=== PATIENT | female | born 1980 | race Two or more races ===

== ENCOUNTER → 2016-11-07 | Outpatient (CLI) | payer SELFPAY ==
--- NOTE | 2016-11-07 11:52 | RADIOLOGY REPORT (SQ) ---
EXAM DESCRIPTION: CHEST PA/LATERAL COMPLETED DATE/TIME: 11/07/2016 9:46 am REASON FOR STUDY: CHEST PAIN, UNSPECIFIED COMPARISON: None. NUMBER OF VIEWS: Two view. TECHNIQUE: Frontal and lateral radiographic views of the chest acquired. LIMITATIONS: None. FINDINGS: LUNGS AND PLEURA: No opacities, masses or pneumothorax. No pleural effusion. MEDIASTINUM AND HILAR STRUCTURES: No masses or contour abnormalities. HEART AND VASCULATURE: Heart normal size. No evidence for failure. BONY STRUCTURES: No acute findings. HARDWARE: None. OTHER: No other significant finding. IMPRESSION: NO SIGNIFICANT RADIOGRAPHIC FINDING IN THE CHEST. TECHNICAL DOCUMENTATION: JOB ID: [id number] [employer]- All Rights Reserved
--- NOTE | 2016-11-07 12:18 | EKG REPORT ---
SEVERITY:- BORDERLINE ECG - SINUS RHYTHM INFERIOR Q WAVES, PROBABLY NORMAL VARIATION : Confirmed by: Estella Pierre 07-Nov-2016 12:17:33
== END ==
LOC: OD 09:28
PROVIDERS: ATTEND Physician Assistant
DX: R07.9 Chest pain, unspecified (principal)
CPT/HCPCS: 71020; 93005; 93010

== ENCOUNTER 2017-05-23 13:33 | Emergency (ER) | payer SELFPAY ==
--- NOTE | 2017-05-23 15:09 | ER Document Report ---
ED GI/ - General Mode of Arrival: Ambulatory Information source: Patient TRAVEL OUTSIDE OF THE [place] IN LAST 30 DAYS: No <NICANOR BANKS - Last Filed: 05/23/17 15:52> <KAMERONRUDDY Pieter - Last Filed: 05/24/17 23:11> - General Chief Complaint: Abdominal Pain Stated Complaint: ABDOMINAL PAIN Time Seen by Provider: 05/23/17 14:58 Notes: Patient is a 37 year old female presenting to the emergency department complaining of lower abdominal pain and vomiting onset 3 days ago. Patient states that she has recently been diagnosed with a UTI and has been taking her medications but feels as if her symptoms have returned. Patient describes her pain as a sharp pain in her pelvis exacerbated with urination. Patient states that she has 6 episodes of vomiting this morning. Patient also complains of headaches. Patient denies fevers, vaginal discharge, or diarrhea. Patient states she took AZO to help her medications and states it minimally relieved his symptoms. Patient currently takes Mobic for her rheumatoid arthritis. (NICANOR BANKS) - Related Data Allergies/Adverse Reactions: No Known Allergies Allergy (Verified 05/23/17 13:35) Past Medical History - General Information source: Patient - Social History Smoking Status: Unknown if Ever Smoked Chew tobacco use (# tins/day): No Frequency of alcohol use: None Drug Abuse: None Family History: CAD, DM, Hyperlipidemia, Hypertension, Thyroid Disfunction Patient has suicidal ideation: No Patient has homicidal ideation: No - Past Medical History Cardiac Medical History: Reports: Hx Pulmonary Embolism Endocrine Medical History: Reports: Hx Hypothyroidism Musculoskeltal Medical History: Reports Hx Arthritis - RA Past Surgical History: Reports: Hx Section, Hx Orthopedic Surgery - R hip, Hx Tubal Ligation, Hx Vascular Surgery - 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 - Immunizations Immunizations up to date: Yes Hx Diphtheria, Pertussis, Tetanus Vaccination: Yes <NICANOR BANKS - Last Filed: 05/23/17 15:52> Review of Systems - Review of Systems Constitutional: No symptoms reported EENT: No symptoms reported Cardiovascular: No symptoms reported Respiratory: No symptoms reported Gastrointestinal: See HPI, Vomiting Genitourinary: See HPI, Pain Female Genitourinary: No symptoms reported Musculoskeletal: No symptoms reported Skin: No symptoms reported Hematologic/Lymphatic: No symptoms reported Neurological/Psychological: See HPI, Headaches -: Yes All other systems reviewed and negative <NICANOR BANKS - Last Filed: 05/23/17 15:52> Physical Exam <NICANOR BANKS - Last Filed: 05/23/17 15:52> <RUDDY MELO - Last Filed: 05/24/17 23:11> - Vital signs Vitals: Temp Pulse Resp BP Pulse Ox 98.9 F 93 18 140/82 H 100 05/23/17 13:46 05/23/17 13:46 05/23/17 13:46 05/23/17 13:46 05/23/17 13:46 - Notes Notes: GENERAL: Alert, interacts well. No acute distress. HEAD: Normocephalic, atraumatic. EYES: Pupils equal, round, and reactive to light. Extraocular movements intact. ENT: Oral mucosa moist, tongue midline. NECK: Full range of motion. Supple. Trachea midline. LUNGS: Clear to auscultation bilaterally, no wheezes, rales, or rhonchi. No respiratory distress. HEART: Regular rate and rhythm. No murmurs, gallops, or rubs. ABDOMEN: Soft, non-tender. Non-distended. Bowel sounds present in all 4 quadrants. EXTREMITIES: Moves all 4 extremities spontaneously. NEUROLOGICAL: Alert and oriented x3. Normal speech. PSYCH: Normal affect, normal mood. SKIN: Warm, dry, normal turgor. No rashes or lesions noted. (NICANOR BANKS) Course <NICANOR BANKS - Last Filed: 05/23/17 15:52> - Laboratory Result Diagrams: 05/23/17 16:06 <RUDDY MELO - Last Filed: 05/24/17 23:11> - Re-evaluation Re-evalutation: 05/23/17 17:01 Labs show leukoesterase and white blood cells with clinical signs and symptoms of urinary tract infection. Patient will be provided Keflex with return precautions provided. (RUDDY MELO) - Vital Signs Vital signs: Temp Pulse Resp BP Pulse Ox 98.0 F 88 18 133/80 H 100 05/23/17 17:18 05/23/17 17:18 05/23/17 17:18 05/23/17 17:18 05/23/17 17:18 - Laboratory Laboratory results interpreted by me: 05/23/17 05/23/17 16:06 16:06 Creatinine 0.51 L Ur Leukocyte Esterase SMALL H Discharge <NICANOR BANKS - Last Filed: 05/23/17 15:52> <RUDDY MELO - Last Filed: 05/24/17 23:11> - Discharge Clinical Impression: Urinary tract infection Qualifiers: Urinary tract infection type: site unspecified Hematuria presence: without hematuria Qualified Code(s): N39.0 - Urinary tract infection, site not specified Disposition: HOME, SELF-CARE Instructions: Urinary Tract Infection ([facility]) Additional Instructions: If you begin to develop any fevers or worsening symptoms return to emergency department for further evaluation Prescriptions: Cephalexin Monohydrate [Keflex 500 mg Capsule] 500 mg PO Q6H 5 Days capsule Referrals: JOSE MANUEL BROWN PA-C [Primary Care Provider] - Follow up as needed Scribe Attestation: 05/24/17 23:11 I personally performed the services described documentation, reviewed and edited the documentation which was dictated to describe my presence, and it accurately records my words and actions. (RUDDY MELO) Scribe Documentation - Scribe Written by Scribe:: Maximilian Ramsey, 05/23/2017 15:35 acting as scribe for :: Kameron <NICANOR BANKS - Last Filed: 05/23/17 15:52>
[2017-05-23] MEDS ORDERED: PROCHLORPERAZINE EDISYLATE INJ 10 MG/2 ML VIAL IM ONE (16:15)
[2017-05-23 16:29] LABS: APPEARANCE,URINE SLIGHTLY-CLOUDY; BILIRUBIN,URINE NEGATIVE (NEGATIVE); COLOR,URINE YELLOW; GLUCOSE, URINE NEGATIVE (NEGATIVE); KETONES,URINE NEGATIVE (NEGATIVE); LEUKOCYTE ESTERASE,URINE SMALL (NEGATIVE); NITRITE,URINE NEGATIVE (NEGATIVE); PROTEIN,URINE NEGATIVE (NEGATIVE); URINE SPECIFIC GRAVITY 1.013; UROBILINOGEN,URINE NEGATIVE mg/dL (<2.0)
[2017-05-23 16:47] LABS: ANION GAP 8 (5-19); BLOOD UREA NITROGEN 10 mg/dL (7-20); CALCIUM 9.8 mg/dL (8.4-10.2); CARBON DIOXIDE 28 mmol/L (22-30); CHLORIDE 103 mmol/L (98-107); GLUCOSE 86 mg/dL (75-110); POTASSIUM 3.7 mmol/L (3.6-5.0); SODIUM 139.3 mmol/L (137-145)
[2017-05-23 17:23] VITALS: BP 133/80
== END 2017-05-23 17:20 | disposition home or self-care (01) ==
LOC: ER 13:33
DX: N39.0 Urinary tract infection, site not specified (principal); R10.30 Lower abdominal pain, unspecified; R11.10 Vomiting, unspecified; R51 Headache; E03.9 Hypothyroidism, unspecified; Z86.711 Personal history of pulmonary embolism; Z98.51 Tubal ligation status
CPT/HCPCS: 99283; 96372; 36415; 81025; 80048; 81001; J0780

== ENCOUNTER → 2018-06-18 | Outpatient (CLI) | payer MEDICAID ==
--- NOTE | 2018-06-19 08:37 | RADIOLOGY REPORT (SQ) ---
EXAM DESCRIPTION: CHEST 2 VIEWS COMPLETED DATE/TIME: 06/18/2018 6:35 pm REASON FOR STUDY: R05 COUGH COMPARISON: 11/07/2016 EXAM PARAMETERS: NUMBER OF VIEWS: two views TECHNIQUE: Digital Frontal and Lateral radiographic views of the chest acquired. RADIATION DOSE: NA LIMITATIONS: none FINDINGS: LUNGS AND PLEURA: No opacities, masses or pneumothorax. No pleural effusion. MEDIASTINUM AND HILAR STRUCTURES: No masses or contour abnormalities. HEART AND VASCULAR STRUCTURES: Heart normal size. No evidence for failure. BONES: No acute findings. HARDWARE: None in the chest. OTHER: IVC filter to the right of the L1-L2 vertebra, unchanged finding. IMPRESSION: 1. No significant interval changes since the previous examination dated 11/07/2016. No acute findings. TECHNICAL DOCUMENTATION: JOB ID: [id number] [employer]- All Rights Reserved Reading location - IP/workstation name: [email or web address]
== END ==
LOC: RAD 18:11
PROVIDERS: ATTEND Nurse Practitioner Acute Care
DX: R05 Cough (principal)
CPT/HCPCS: 71046

== ENCOUNTER 2018-08-01 06:31 | Emergency (ER) | payer SELFPAY ==
[2018-08-01] MEDS ORDERED: ACETAMINOPHEN 325 MG TABLET PO ONE ×2 (07:23→16:46)
[2018-08-01] MEDS ORDERED: NORMAL SALINE 1000 ML 1,000 ML IV PRN (08:00)
[2018-08-01 08:02] LABS: APPEARANCE,URINE SLIGHTLY-CLOUDY; BILIRUBIN,URINE NEGATIVE (NEGATIVE); GLUCOSE, URINE NEGATIVE (NEGATIVE); KETONES,URINE NEGATIVE (NEGATIVE); LEUKOCYTE ESTERASE,URINE MODERATE (NEGATIVE); NITRITE,URINE NEGATIVE (NEGATIVE); PROTEIN,URINE 100 mg/dL (NEGATIVE); URINE SPECIFIC GRAVITY 1.025
[2018-08-01 08:03] LABS: COLOR,URINE DARK YELLOW
[2018-08-01] MEDS ORDERED: ONDANSETRON HCL INJ/PF 4 MG/2 ML SDV IV ONE (08:06)
[2018-08-01 08:39] LABS: HEMATOCRIT 35.6 % (36.0-47.0); HEMOGLOBIN 11.8 g/dL (12.0-15.5); MEAN CORPUSCULAR HGB CONC 33.2 g/dL (32.0-36.0); MEAN CORPUSCULAR VOLUME 78 fl (80-97); PLATELET COUNT 276 10^3/uL (150-450); RED BLOOD COUNT 4.55 10^6/uL (3.72-5.28); RED CELL DISTRIBUTION WIDTH 15.5 % (11.5-14.0)
--- NOTE | 2018-08-01 08:53 | ER Document Report ---
ED Medical Screen (RME) - General Chief Complaint: Fever Stated Complaint: VOMITING Time Seen by Provider: 08/01/18 08:42 Primary Care Provider: JOSE MANUEL BROWN PA-C [Primary Care Provider] - Follow up as needed Mode of Arrival: Ambulatory Information source: Patient Notes: Patient presents to the emergency department with complaints of abdominal pain, left upper quad, for the past week. Denies trauma. She reports fever of 102 started yesterday with vomiting and diarrhea. Patient has history of PE with a filter, asthma. Patient also reports that it feels like a ton of bricks sitting on her chest. Patient also reports her whole body hurts. No wheezes noted. Respiratory rate even unlabored. I have greeted and performed a rapid initial assessment of this patient. A comprehensive ED assessment and evaluation of the patient, analysis of test results and completion of the medical decision making process will be conducted by additional ED providers. TRAVEL OUTSIDE OF THE [place] IN LAST 30 DAYS: No - Related Data Allergies/Adverse Reactions: No Known Allergies Allergy (Verified 05/23/17 13:35) Past Medical History - Social History Chew tobacco use (# tins/day): No Frequency of alcohol use: None Drug Abuse: None - Past Medical History Cardiac Medical History: Reports: Hx Pulmonary Embolism Endocrine Medical History: Reports: Hx Hypothyroidism Renal/ Medical History: Denies: Hx Peritoneal Dialysis Musculoskeltal Medical History: Reports Hx Arthritis - RA Past Surgical History: Reports: Hx Section, Hx Orthopedic Surgery - R hip, Hx Tubal Ligation, Hx Vascular Surgery - 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 - Immunizations Immunizations up to date: Yes Hx Diphtheria, Pertussis, Tetanus Vaccination: Yes Physical Exam - Vital signs Vitals: Temp Pulse Resp BP Pulse Ox 100.4 F 112 H 20 128/75 H 97 08/01/18 06:37 08/01/18 06:37 08/01/18 06:37 08/01/18 06:37 08/01/18 06:37 Course - Vital Signs Vital signs: Temp Pulse Resp BP Pulse Ox 100.4 F 112 H 20 128/75 H 97 08/01/18 06:37 08/01/18 06:37 08/01/18 06:37 08/01/18 06:37 08/01/18 06:37 - Laboratory Result Diagrams: 08/01/18 08:08 08/01/18 08:08 Laboratory results interpreted by me: 08/01/18 08/01/18 07:29 08:08 WBC 15.0 H Hgb 11.8 L Hct 35.6 L MCV 78 L MCH 26.0 L RDW 15.5 H Urine Protein 100 H Urine Blood SMALL H Urine Urobilinogen 4.0 H Ur Leukocyte Esterase MODERATE H Doctor's Discharge - Discharge Referrals: JOSE MANUEL BORWN PA-C [Primary Care Provider] - Follow up as needed
[2018-08-01 09:02] LABS: A TYPE INFLUENZA AG NEGATIVE (NEGATIVE); B INFLUENZA AG NEGATIVE (NEGATIVE)
[2018-08-01 09:08] LABS: ABSOLUTE LYMPHOCYTES# (MANUAL) 0.8 10^3/uL (0.5-4.7); ABSOLUTE MONOCYTES # (MANUAL) 0.2 10^3/uL (0.1-1.4); BAND NEUTROPHILS % (MANUAL) 3 % (3-5); BASOPHILS % (MANUAL) 0 % (0-2); EOSINOPHILS % (MANUAL) 1 % (0-6); LYMPHOCYTES % (MANUAL) 5 % (13-45); MONOCYTES % (MANUAL) 1 % (3-13); SEGMENTED NEUTROPHILS % (MAN) 90 % (42-78); TOTAL CELLS COUNTED 100
[2018-08-01 09:13] LABS: ANISOCYTOSIS SLIGHT; OVALOCYTES SLIGHT; PLATELET COMMENT ADEQUATE; POLYCHROMASIA SLIGHT; TOXIC GRANULATION SLIGHT; TOXIC VACUOLATION PRESENT
[2018-08-01 09:18] LABS: INTERNATIONAL RATION (INR) 1.13; PARTIAL THROMBOPLASTIN TIME 38.6 SEC (23.5-35.8); PROTHROMBIN TIME 15.1 SEC (11.4-15.4)
[2018-08-01 10:03] LABS: CREATINE KINASE MB < 0.22 ng/mL (<4.55); TROPONIN I < 0.012 ng/mL
[2018-08-01 11:45] LABS: ALANINE AMINOTRANSFERASE 28 U/L (9-52); ALBUMIN 3.8 g/dL (3.5-5.0); ALKALINE PHOSPHATASE 75 U/L (38-126); ANION GAP 10 (5-19); ASPARTATE AMINO TRANSFERASE 21 U/L (14-36); BILIRUBIN,DIRECT 0.4 mg/dL (0.0-0.4); BILIRUBIN,TOTAL 0.4 mg/dL (0.2-1.3); BLOOD UREA NITROGEN 11 mg/dL (7-20); CALCIUM 8.8 mg/dL (8.4-10.2); CARBON DIOXIDE 24 mmol/L (22-30); CHLORIDE 106 mmol/L (98-107); CREATINE KINASE 59 U/L (30-135); GLUCOSE 97 mg/dL (75-110); POTASSIUM 3.3 mmol/L (3.6-5.0); SODIUM 139.6 mmol/L (137-145); TOTAL PROTEIN 7.4 g/dL (6.3-8.2)
[2018-08-01] MEDS ORDERED: NORMAL SALINE 1000 ML 1,000 ML IV ONE (11:55)
[2018-08-01] MEDS ORDERED: FENTANYL CITRATE INJ/PF 100 MCG/2 ML AMPUL IV ONE (11:58)
[2018-08-01] MEDS ORDERED: CEFTRIAXONE 1 GM/D5W RTU 1 GM/50 ML RTUPB IV ONE (12:17)
--- NOTE | 2018-08-01 12:18 | ER Document Report ---
ED General - General Chief Complaint: Fever Stated Complaint: VOMITING Time Seen by Provider: 08/01/18 08:42 Primary Care Provider: JOSE MANUEL BROWN PA-C [Primary Care Provider] - Follow up as needed Mode of Arrival: Ambulatory Notes: 38-year-old female with history of PE with IVC filter Zentz to the emergency department for chief complaint of fever, vomiting, diarrhea, body aches since yesterday. Her T-max yesterday was 102.7. She took ibuprofen 1 hour prior to arrival to the ER and her temp on arrival was 100.4. She arrived tachycardic. She also complains of cramping abdominal pain on the left side, dysuria, urinary frequency, left flank pain. She denies any abnormal vaginal charge. She also complains of headache. Patient states that in her previous had a history of kidney stone that was diagnosed. TRAVEL OUTSIDE OF THE [place] IN LAST 30 DAYS: No - Related Data Allergies/Adverse Reactions: No Known Allergies Allergy (Verified 08/01/18 10:20) Past Medical History - General Information source: Patient - Social History Smoking Status: Current Some Day Smoker Chew tobacco use (# tins/day): No Frequency of alcohol use: None Drug Abuse: None Family History: CAD, DM, Hyperlipidemia, Hypertension, Thyroid Disfunction Patient has suicidal ideation: No Patient has homicidal ideation: No - Past Medical History Cardiac Medical History: Reports: Hx Pulmonary Embolism Endocrine Medical History: Reports: Hx Hypothyroidism Renal/ Medical History: Denies: Hx Peritoneal Dialysis Musculoskeletal Medical History: Reports Hx Arthritis - RA Past Surgical History: Reports: Hx Section, Hx Orthopedic Surgery - R hip, Hx Tubal Ligation, Hx Vascular Surgery - 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 - Immunizations Immunizations up to date: Yes Hx Diphtheria, Pertussis, Tetanus Vaccination: Yes Review of Systems - Review of Systems Constitutional: See HPI EENT: No symptoms reported Cardiovascular: See HPI Respiratory: See HPI Gastrointestinal: See HPI Genitourinary: See HPI Female Genitourinary: See HPI Musculoskeletal: No symptoms reported Skin: No symptoms reported Hematologic/Lymphatic: No symptoms reported Neurological/Psychological: No symptoms reported Physical Exam - Vital signs Vitals: Temp Pulse Resp BP Pulse Ox 100.4 F 112 H 20 128/75 H 97 08/01/18 06:37 08/01/18 06:37 08/01/18 06:37 08/01/18 06:37 08/01/18 06:37 - Notes Notes: PHYSICAL EXAMINATION: Reviewed vital signs and charting by RN GENERAL: Alert, interacts well. Mild distress. HEAD: Normocephalic, atraumatic. EYES: Pupils equal and round. Extraocular movements intact. NECK: Full range of motion. Supple. Trachea midline. LUNGS: Clear to auscultation bilaterally, no wheezes, rales, or rhonchi. No respiratory distress. HEART: Regular rhythm, mild tachycardia. No murmur ABDOMEN: soft, tender to palpation left side. Non-distended. Bowel sounds present. no McBurney's point tenderness, no Roe sign. EXTREMITIES: Moves all 4 extremities spontaneously. No edema, No cyanosis. Normal distal neurovascular exam BACK: L CVAT NEUROLOGIC: Oriented and appropriate. Normal speech. PSYCH: Normal affect, normal mood. SKIN: Warm, dry, normal turgor. No rashes or lesions noted. Course - Re-evaluation Re-evalutation: 08/01/18 12:15 In mild distress. Left flank pain with urinary symptoms. I am concerned for potential infected kidney stone and will get a CT limited. Also, I will give her fentanyl for pain control. I am going to give her an additional 1 L of fluids she has received one already her heart rate has improved somewhat. Urina lysis shows a urinary tract infection. She has a leukocytosis of 15,000. 08/01/18 12:17 08/01/18 15:05 CT limited obtained and it showed some mild perinephritic stranding with no hydro-, she has history of a hip replacement secondary to RA so the distal ureter was limited but there is no clear indication that she had an obstructive stone. This is a diagnosis of pyelonephritis. She received ceftriaxone 1 g IV. She is in acute pain and she did receive fentanyl 50 mcg 1 time for which she reported minimal relief and then I subsequently dosed her with Dilaudid 0.5 mg 1 time. Patient is not on any Biologics and therefore is not immunocompromised. After lengthy discussion with her and her using shared decision making patient is comfortable going home with close supervision and is able to provide that. I gave her strict return precautions and will send her home with Keflex 500 mg twice daily for 14 days. I am also going to send her home with some pain control. At this time patient's vital signs are stable and have been throughout her course. - Vital Signs Vital signs: Temp Pulse Resp BP Pulse Ox 98.9 F 95 16 117/59 L 97 08/01/18 10:35 08/01/18 10:35 08/01/18 10:35 08/01/18 10:35 08/01/18 10:37 - Laboratory Result Diagrams: 08/01/18 08:08 08/01/18 10:57 Laboratory results interpreted by me: 08/01/18 08/01/18 08/01/18 07:29 08:08 08:08 WBC 15.0 H Hgb 11.8 L Hct 35.6 L MCV 78 L MCH 26.0 L RDW 15.5 H Seg Neuts % (Manual) 90 H Lymphocytes % (Manual) 5 L Monocytes % (Manual) 1 L Abs Neuts (Manual) 14.0 H APTT 38.6 H Potassium Urine Protein 100 H Urine Blood SMALL H Urine Urobilinogen 4.0 H Ur Leukocyte Esterase MODERATE H 08/01/18 10:57 WBC Hgb Hct MCV MCH RDW Seg Neuts % (Manual) Lymphocytes % (Manual) Monocytes % (Manual) Abs Neuts (Manual) APTT Potassium 3.3 L Urine Protein Urine Blood Urine Urobilinogen Ur Leukocyte Esterase Discharge - Discharge Clinical Impression: Pyelonephritis Condition: Good Disposition: HOME, SELF-CARE Instructions: Pyelonephritis ([facility]), Antibiotic Therapy ([facility]) Additional Instructions: You have been diagnosed with a condition called pyelonephritis which is an infection involving your kidneys and bladder. You have been given a dose of antibiotics here in the emergency department to help begin to treat this infection. Your also being sent home on antibiotics. Please start taking these later on today when you fill the prescription. Complete the course even if you feel better. Please return if you have persistent vomiting, pass out, have worsening pain, become unable to tolerate fluids, or have any other symptoms that are concerning to you. Please follow-up with your primary care physician in the next 24-48 hours. Prescriptions: Cephalexin Monohydrate [Keflex 500 mg Capsule] 500 mg PO BID 14 Days #28 capsule Referrals: JOSE MANUEL BROWN PA-C [Primary Care Provider] - Follow up as needed
--- NOTE | 2018-08-01 13:24 | RADIOLOGY REPORT (SQ) ---
EXAM DESCRIPTION: CT ABD/PELVIS NO ORAL OR IV COMPLETED DATE/TIME: 08/01/2018 1:09 pm REASON FOR STUDY: Left flank pain COMPARISON: None. TECHNIQUE: CT scan of the abdomen and pelvis performed without intravenous or oral contrast. Images reviewed with lung, soft tissue, and bone windows. Reconstructed coronal and sagittal MPR images revi ewed. All images stored on PACS. All CT scanners at this facility use dose modulation, iterative reconstruction, and/or weight based d osing when appropriate to reduce radiation dose to as low as reasonably achievable (ALARA). [facility]: Dose Right [facility]: CareDose [facility]: Dose Right [facility]: Teradose 4D [facility]: [employer] RADIATION DOSE: CT Rad equipment meets quality standard of care and radiation dose reduction techniq ues were employed. CTDIvol: 19.2 mGy. DLP: 1110 mGy-cm.mGy. LIMITATIONS: None. FINDINGS: LOWER CHEST: Bibasilar scarring or atelectasis. NON-CONTRASTED LIVER, SPLEEN, ADRENALS: Evaluation limited by lack of IV contrast. No identified sign ificant masses. PANCREAS: No masses. No peripancreatic inflammatory changes. GALLBLADDER: No identified stones by CT criteria. No inflammatory changes to suggest cholecystitis. RIGHT KIDNEY AND URETER: No suspicious masses. Assessment limited by lack of IV contrast. No signif icant calcifications. No hydronephrosis or hydroureter. LEFT KIDNEY AND URETER: No suspicious masses. Assessment limited by lack of IV contrast. There is pe rinephric fat stranding about the left kidney without significant hydronephrosis or hydroureter. Unique luation of the distal left ureter is limited by dense streak artifact from right hip arthroplasty, ho wever there is no obvious urinary tract calculus within this limitation. AORTA AND RETROPERITONEUM: No aneurysm. No retroperitoneal masses or adenopathy. Infrarenal IVC filt er. BOWEL AND PERITONEAL CAVITY: No obvious masses or inflammatory changes. No free fluid. APPENDIX: Normal. PELVIS, BLADDER, AND ABDOMINAL WALL:No abnormal masses. No free fluid. Bladder normal. BONES: No significant findings. OTHER: No other significant finding. IMPRESSION: There is perinephric fat stranding about the left kidney without significant hydronephro sis or hydroureter. Evaluation of the distal left ureter is limited by dense streak artifact from rig ht hip arthroplasty, however there is no obvious urinary tract calculus within this limitation. Find ings may reflect a recently passed calculus or left pyelonephritis. Correlate with urinalysis. COMMENT: Quality ID # [id number]: Final reports with documentation of one or more dose reduction techniques (e.g., Automated exposure control, adjustment of the mA and/or kV according to patient size, use of iterative reconstruction technique) TECHNICAL DOCUMENTATION: JOB ID: [id number] [employer]- All Rights Reserved Reading location - IP/workstation name: [email or web address]
[2018-08-01] MEDS ORDERED: HYDROMORPHONE HCL INJ/PF 2 MG/ML AMPULE IV ONE (14:13)
[2018-08-01] MEDS ORDERED: ONDANSETRON ODT 4 MG TAB (6 TAB/ER DISP) PO PRN (15:18)
[2018-08-01] MEDS ORDERED: IBUPROFEN 600 MG TABLET PO ONE (16:46)
[2018-08-01] MEDS ORDERED: DIPHENHYDRAMINE HCL 50 MG/ML VIAL IV ONE (18:45)
[2018-08-01] MEDS ORDERED: METOCLOPRAMIDE HCL INJ/PF 10 MG/2 ML SDV IV ONE (18:45)
[2018-08-01] MEDS ORDERED: KETOROLAC TROMETHAMINE INJ/PF 30 MG/1 ML SDV IV ONE (18:45)
[2018-08-01 19:21] VITALS: BP 126/76
--- NOTE | 2018-08-02 10:59 | EKG REPORT ---
SEVERITY:- NORMAL ECG - SINUS RHYTHM : Confirmed by: Estella Pierre 02-Aug-2018 10:59:00
== END 2018-08-01 19:21 | disposition home or self-care (01) ==
LOC: ER 06:31
DX: N12 Tubulo-interstitial nephritis, not specified as acute or chronic (principal); R50.9 Fever, unspecified; R11.10 Vomiting, unspecified; R19.7 Diarrhea, unspecified; R10.9 Unspecified abdominal pain; R51 Headache; F17.200 Nicotine dependence, unspecified, uncomplicated; Z87.442 Personal history of urinary calculi
CPT/HCPCS: 93005; 99284; 96361; 96375; 96365; 36415; 87040; 82553; 82550; 85025; 85610; 85730; 81025; 80053; 81001; 84484; 83605; 87804; 74176; 93010; J1200; J3010; J1885; J2765; J1170; J2405; J7030; J0696

== ENCOUNTER → 2019-02-21 | Outpatient (CLI) | payer MEDICAID ==
[2019-02-21 16:37] LABS: BACTERIA (WET MOUNT) 4+ BACTERIA SEEN; EPITHELIALS (WET MOUNT) 4+ EPITHELIALS SEEN; RBCS (WET MOUNT) RARE RBCS SEEN; T.VAGINALIS (WET MOUNT) TRICHOMONAS SEEN; WBCS (WET MOUNT) 1+ WBCS SEEN; YEAST (WET MOUNT) NO YEAST SEEN
[2019-02-21 18:02] LABS: CHLAM PCR NOT DETECTED (NOT DETECT)
== END ==
LOC: LAB 16:22
PROVIDERS: ATTEND Nurse Practitioner Family
DX: N89.8 Other specified noninflammatory disorders of vagina (principal); R30.0 Dysuria
CPT/HCPCS: 87086; 87210; 87491; 87591

== ENCOUNTER 2019-06-14 15:07 | Emergency (ER) | payer SELFPAY ==
[2019-06-14 15:15] VITALS: BP 171/92
[2019-06-14] MEDS ORDERED: METHYLPREDNISOLONE INJ 125 MG/2 ML SDV IM ONE (15:26)
--- NOTE | 2019-06-14 15:29 | ER Document Report ---
HPI - HPI Time Seen by Provider: 06/14/19 15:21 Notes: Patient is a 39-year-old female with h/o HTN and asthma who presents to the ED complaining of nasal congestion/discharge, dry nonproductive cough, loss of voice/hoarseness that began yesterday. Patient states that she is still eating and drinking without difficulties. She is still urinating normally having normal bowel movements. Patient has been using some [id number] meds for symptoms. She denies any other significant past medical history including cardiopulmonary history and immunocompromised conditions. Denies any headache, fever, neck pain, sore throat, chest pain, palpitations, syncope, shortness of breath, wheeze, dyspnea, abdominal pain, nausea/vomiting/diarrhea, urinary retention, dysuria, hematuria, or rash. - ROS Systems Reviewed and Negative: Yes All other systems reviewed and negative - REPRODUCTIVE Reproductive: DENIES: : Past Medical History - Social History Smoking Status: Unknown if Ever Smoked Family History: CAD, DM, Hyperlipidemia, Hypertension, Thyroid Disfunction - Past Medical History Cardiac Medical History: Reports: Hx Pulmonary Embolism Endocrine Medical History: Reports: Hx Hypothyroidism Renal/ Medical History: Denies: Hx Peritoneal Dialysis Musculoskeletal Medical History: Reports Hx Arthritis - RA Past Surgical History: Reports: Hx Section, Hx Orthopedic Surgery - R hip, Hx Tubal Ligation, Hx Vascular Surgery - 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 A&Ox4. Answers questions appropriately. Moves comfortably w/o notable distress HEAD: Atraumatic, normocephalic. EYES: Pupils equal round and reactive to light, extraocular movements intact, sclera anicteric, conjunctiva are normal. ENT: Nares patent and with clear discharge. oropharynx no erythema without exudates. No tonsilar hypertrophy without erythema or exudate. No palatine shift. Uvula midline. No tongue protrusion. No drooling or airway compromise. + hoarseness of voice. Moist mucous membranes. No sinus tenderness. NECK: Normal range of motion, supple without lymphadenopathy. No rigidity/meningismus. LUNGS: Breath sounds clear to auscultation bilaterally and equal. No wheezes rales or rhonchi. No retractions HEART: Regular rate and rhythm without murmurs, rubs, gallops. ABDOMEN: Soft, nontender, nondistended abdomen. No guarding, no rebound. Normal bowel sounds present. No CVA tenderness bilaterally. NEUROLOGICAL: Normal speech aside from hoarseness, normal gait. PSYCH: Normal mood, normal affect. SKIN: Warm, Dry, normal turgor, no rashes or lesions noted. - INFECTION CONTROL TRAVEL OUTSIDE OF THE [place] IN LAST 30 DAYS: No Course - Re-evaluation Re-evalutation: 06/14/19 15:27 Patient is an afebrile, well-hydrated, 39-year-old female who presents to the emergency department with an acute URI/laryngitis, suspect viral. Vitals are acceptable without significant tachycardia, tachypnea, or hypoxia. PE is otherwise unremarkable. She is nontoxic-appearing and is tolerating p.o. without difficulty. Lungs are clear to auscultation bilaterally. No further labs or imaging warranted at this time. Solumedrol given IM. Rx for steroid pack. Low suspicion for any meningitis, sepsis, peritonsillar/pharyngeal abscess, respiratory compromise, Jovanny's, or other emergent systemic condition at this time. Patient is aware this condition can change from initial presentation and he needs to monitor symptoms closely. Conservative measures otherwise for symptoms. Recheck with your PCM in 2-3 days. Return to the ED with any worsening/concerning symptoms otherwise as reviewed in discharge. Patient is in agreement. - Vital Signs Vital signs: Temp Pulse Resp BP Pulse Ox 97.9 F 83 18 171/92 H 100 06/14/19 15:14 06/14/19 15:14 06/14/19 15:14 06/14/19 15:14 06/14/19 15:14 Discharge - Discharge Clinical Impression: Acute URI, Acute laryngitis Condition: Stable Disposition: HOME, SELF-CARE Instructions: Laryngitis ([facility]), Upper Respiratory Illness ([facility]) Additional Instructions: Maintain adequate fluid intake tylenol/ibuprofen as needed alternating every 3 hours for fever/body ache over the counter cold medication as needed for symptoms Humidified air may help Wash your hands regularly Wear a mask when coughing F/u: with your PCM in 2-3 days for a recheck Return to the ED with any fever, altered mental status/behavior, chest pain, palpitations, syncope, headache, neck pain/stiffness, shortness of breath, chest pains, wheezing, drooling, trouble swallowing/breathing, abdominal pain, n/v/d, rash, or worsening/concerning symptoms otherwise. Prescriptions: Prednisone [Deltasone 10 mg Tablet] 10 mg PO ASDIR PRN #21 tablet PRN Reason: Forms: Elevated Blood Pressure Referrals: SUGAR LYNCH FNP [Primary Care Provider] - 06/17/19
== END 2019-06-14 16:03 | disposition home or self-care (01) ==
LOC: ER 15:07
DX: J06.9 Acute upper respiratory infection, unspecified (principal); J04.0 Acute laryngitis; R09.81 Nasal congestion; R05 Cough; I10 Essential (primary) hypertension; J45.909 Unspecified asthma, uncomplicated
CPT/HCPCS: 96372; 99283; J2930

== ENCOUNTER 2019-09-27 16:24 | Emergency (ER) | payer SELFPAY ==
--- NOTE | 2019-09-27 17:40 | ER Document Report ---
ED Oral Problem - General Chief Complaint: Toothache Stated Complaint: TOOTHACHE Time Seen by Provider: 09/27/19 17:35 Mode of Arrival: Ambulatory Information source: Patient TRAVEL OUTSIDE OF THE [place] IN LAST 30 DAYS: No - HPI Patient complains to provider of: Jaw pain Onset: Just prior to arrival Quality of pain: Achy, Fullness Context: Fractured tooth Sore throat: Moderate Associated symptoms: Toothache. denies: Chills, Drooling, Earache, Sweaty Relieved by: Nothing Similar symptoms previously: No Recently seen / treated by doctor/dentist: No - Related Data Allergies/Adverse Reactions: No Known Allergies Allergy (Verified 06/14/19 15:21) Past Medical History - General Information source: Patient - Social History Smoking Status: Never Smoker Cigarette use (# per day): No Chew tobacco use (# tins/day): No Smoking Education Provided: No Frequency of alcohol use: None Drug Abuse: None Family History: CAD, DM, Hyperlipidemia, Hypertension, Thyroid Disfunction Patient has homicidal ideation: No - Past Medical History Cardiac Medical History: Reports: Hx Pulmonary Embolism Endocrine Medical History: Reports: Hx Hypothyroidism Renal/ Medical History: Denies: Hx Peritoneal Dialysis Musculoskeletal Medical History: Reports Hx Arthritis - RA Past Surgical History: Reports: Hx Section, Hx Orthopedic Surgery - R hip, Hx Tubal Ligation, Hx Vascular Surgery - 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 - Immunizations Immunizations up to date: Yes Hx Diphtheria, Pertussis, Tetanus Vaccination: Yes Review of Systems - Review of Systems Constitutional: No symptoms reported EENT: No symptoms reported Cardiovascular: No symptoms reported Respiratory: No symptoms reported Gastrointestinal: No symptoms reported Genitourinary: No symptoms reported Female Genitourinary: No symptoms reported Musculoskeletal: No symptoms reported Skin: No symptoms reported Hematologic/Lymphatic: No symptoms reported Neurological/Psychological: No symptoms reported Physical Exam - Vital signs Vitals: Temp Pulse Resp BP Pulse Ox 98.3 F 81 18 160/92 H 98 09/27/19 16:39 09/27/19 16:39 09/27/19 16:39 09/27/19 16:39 09/27/19 16:39 Interpretation: Normal - General General appearance: Appears well, Alert - HEENT Head: Normocephalic, Atraumatic Eyes: Normal Pupils: PERRL Pharynx: Normal - Respiratory Respiratory status: No respiratory distress Chest status: Nontender Breath sounds: Normal Chest palpation: Normal - Cardiovascular Rhythm: Regular Heart sounds: Normal auscultation Murmur: No - Abdominal Inspection: Normal Distension: No distension Bowel sounds: Normal Tenderness: Nontender Organomegaly: No organomegaly - Back Back: Normal, Nontender - Extremities General upper extremity: Normal inspection, Nontender, Normal color, Normal ROM, Normal temperature General lower extremity: Normal inspection, Nontender, Normal color, Normal ROM, Normal temperature, Normal weight bearing. No: Jorge's sign - Neurological Neuro grossly intact: Yes Cognition: Normal Orientation: AAOx4 [place] Coma Scale Eye Opening: Spontaneous [place] Coma Scale Verbal: Oriented [place] Coma Scale Motor: Obeys Commands [place] Coma Scale Total: 15 Speech: Normal Motor strength normal: LUE, RUE, LLE, RLE Sensory: Normal - Psychological Associated symptoms: Normal affect, Normal mood - Skin Skin Temperature: Warm Skin Moisture: Dry Skin Color: Normal Course - Vital Signs Vital signs: Temp Pulse Resp BP Pulse Ox 98.3 F 81 18 160/92 H 98 09/27/19 17:31 09/27/19 16:39 09/27/19 16:39 09/27/19 16:39 09/27/19 16:39 Discharge - Discharge Clinical Impression: Dental alveolar anomalies Disposition: HOME, SELF-CARE Instructions: [facility], Penicillin V K ([facility]) Prescriptions: Penicillin V Potassium [Penicillin Vk 500 mg Tablet] 500 mg PO Q6 #40 tablet Tramadol HCl [Ultram] 50 mg PO Q4 PRN #20 tablet PRN Reason: Pain Scale Of 5
[2019-09-27 17:46] VITALS: BP 160/53
== END 2019-09-27 17:44 | disposition home or self-care (01) ==
LOC: ER 16:24
DX: M26.70 Unspecified alveolar anomaly (principal); K08.89 Other specified disorders of teeth and supporting structures
CPT/HCPCS: 99282